=== PATIENT | male | born 1985 | race Caucasian/White ===

== ENCOUNTER 2016-06-05 22:15 | Emergency (ER) | payer SELFPAY ==
[2016-06-05] MEDS ORDERED: LORazepam 1 MG TAB PO ONE (22:49)
[2016-06-05] MEDS ORDERED: OLANZapine DISINTEGR 5 MG TAB PO ONE (22:49)
--- NOTE | 2016-06-05 22:52 | EDPHY ---
H & P Stated Complaint: SI depression detoxing for heroin and benzos - Personal History Current Tetanus/Diphtheria Vaccine: Unsure Current Tetanus Diphtheria and Acellular Pertussis (TDAP): Unsure Tetanus Vaccine Date: 2015 - Medical/Surgical History Hx Asthma: No Hx Chronic Respiratory Disease: No Hx Diabetes: No Hx Cardiac Disease: No Hx Renal Disease: No Hx Cirrhosis: No Hx Alcoholism: No Hx HIV/AIDS: No Hx Splenectomy or Spleen Trauma: No Other PMH: denies - Social History Smoking Status: Heavy smoker Time Seen by Provider: 06/05/16 22:28 HPI/ROS: Chief complaint, suicidal, detoxing HPI: 31-year-old male states that he is detoxing off of heroin and meth. Patient states that he he has been trying to "score enough heroin to kill myself " but has been unable to get his hands on any. He states that he last used heroin about 30 hours ago. Did use meth yesterday. Has a history of depression and has had suicide attempts in the past with overdoing. He has also cut his wrist in the past. He moved here from [place] in December. He has received mental health care in [place] in the past. Denies any other ingestions. No recent illness. No fevers or chills. No nausea or vomiting. No chest pain or shortness of breath. ROS: 10 point Review of Systems is negative except as noted in the HPI. Past medical history: Substance abuse, depression Medications: None Allergies: No known drug allergies Social history: Does smoke, does drink alcohol does use "any drug-seeking get his hands on" Physical exam: Gen: Awake, Alert, No Distress HEENT: Nose: no rhinorrhea Eyes: PERRLA, EOMI Mouth: Moist mucosa Neck: Supple, no JVD Chest: nontender, lungs clear to auscultation Heart: S1, S2 normal, no murmur Abd: Soft, non-tender, no guarding Back: no CVA tenderness, no midline tenderness Ext: no edema, non-tender Skin: no rash Neuro: CN II-XII intact, Sensation grossly intact, Strength 5/5 in bilateral upper and lower extremities (Edwin Negro) Constitutional: Initial Vital Signs Temperature (C) 36.8 C 06/05/16 22:19 Heart Rate 91 06/05/16 22:19 Respiratory Rate 18 06/05/16 22:19 Blood Pressure 118/76 06/05/16 22:19 O2 Sat (%) 99 06/05/16 22:19 O2 Delivery Mode Room Air Allergies/Adverse Reactions: No Known Allergies Allergy (Unverified 06/05/16 22:22) Home Medications: Medication Instructions Recorded NK [No Known Home Meds] 06/05/16 Medical Decision Making ED Course/Re-evaluation: 31-year-old male presenting suicidal with intent to kill himself by overdosing on heroin. He is positive for meth, marijuana and opioids. I have put him on a detainer. He will need a mental health evaluation after his meth has cleared. He is complaining of agitation and withdrawal. I will give him some Ativan and Zyprexa here. (Edwin Negro) Other Provider: Care assumed at 6:45 a.m. with plan for psychiatric evaluation after methamphetamine clearance. 921: Patient had psychiatric evaluation disposition and is the recommendation of the evaluate Torey and the psychiatrist leasing sales consultant Dr. Johnnie Humphries that he be discharged to detox. Not acutely suicidal at this time. (Orlando Raymundo ) - Data Points Laboratory Results: Laboratory Results 06/05/16 22:40 06/05/16 22:40 Medications Given: Discontinued Medications Lorazepam (Ativan) 2 mg PO EDNOW ONE Stop: 06/05/16 22:50 Last Admin: 06/05/16 23:00 Dose: 2 mg Olanzapine (Zyprexa Zydis) 5 mg PO EDNOW ONE Stop: 06/05/16 22:50 Last Admin: 06/05/16 23:00 Dose: 5 mg Olanzapine (Zyprexa Zydis) 5 mg PO EDNOW ONE Stop: 06/06/16 08:40 Last Admin: 06/06/16 08:44 Dose: 5 mg Departure - Departure Disposition: Home, Routine, Self-Care Clinical Impression: Methamphetamine abuse, Heroin abuse Condition: Good Instructions: Narcotic Abuse (ED), Methamphetamine Abuse (ED) Referrals: Chase Humphries MD [Medical Doctor] - As per Instructions
[2016-06-05 23:21] LABS: % IMMATURE GRANULYOCYTES 0.3 % (0.0-1.1); ABSOLUTE IMMATURE GRANULOCYTES 0.03 10^3/uL (0.00-0.10); ADD DIFF? NO; ADD MORPH? NO; ADD SCAN? NO; ATYPICAL LYMPHOCYTE FLAG 30 (0-99); FRAGMENT RBC FLAG 0 (0-99); HEMOGLOBIN 14.2 g/dL (13.7-17.5); LEFT SHIFT FLG 20 (0-99); LIPEMIA HEMOLYSIS FLAG 90 (0-99); MEAN CELL HEMOGLOBIN 30.5 pg (27.9-34.1); MEAN CELL HEMOGLOBIN CONCENTR. 34.6 g/dL (32.4-36.7); MEAN PLATELET VOLUME 10.3 fL (8.7-11.7); PLATELET CLUMPS FLAG 0 (0-99); PLATELET COUNT 308 10^3/uL (150-400); RED BLOOD CELL COUNT 4.66 10^6/uL (4.40-6.38); RED CELL DISTRIBUTION WIDTH 13.8 % (11.5-15.2)
[2016-06-05 23:28] LABS: ALANINE AMINOTRANSFERASE 27 IU/L (21-72); ALBUMIN 4.8 g/dL (3.5-5.0); ALKALINE PHOSPHATASE 84 IU/L (38-126); ANION GAP 15 mEq/L (8-16); ASPARTATE AMINOTRANSFERASE 31 IU/L (17-59); BILIRUBIN,TOTAL 0.6 mg/dL (0.1-1.4); CALCIUM 9.8 mg/dL (8.5-10.4); CARBON DIOXIDE 22 mEq/l (22-31); CHLORIDE 100 mEq/L (97-110); CREATININE 0.8 mg/dL (0.7-1.3); GLOMERULAR FILTRATION RATE > 60; GLUCOSE 90 mg/dL (70-100); POTASSIUM 4.3 mEq/L (3.5-5.2); SODIUM 137 mEq/L (134-144); TOTAL PROTEIN 8.3 g/dL (6.3-8.2)
[2016-06-06 00:34] LABS: ETHANOL URINE < 10 (NEGATIVE); ETHANOL URINE NEGATIVE (NEGATIVE)
[2016-06-06] MEDS ORDERED: OLANZapine DISINTEGR 5 MG TAB PO ONE (08:39)
[2016-06-06] MEDS ORDERED: OLANZapine DISINTEGR 5 MG TAB ONE (08:41)
[2016-06-06 11:58] VITALS: TEMP 97.5
[2016-06-06 12:20] VITALS: BP 119/82; PULSE 72; RESP 16; O2SAT 94
== END 2016-06-06 12:17 | disposition home or self-care (01) ==
DX: F15.10 Other stimulant abuse, uncomplicated (principal); F11.10 Opioid abuse, uncomplicated; F17.200 Nicotine dependence, unspecified, uncomplicated
CPT/HCPCS: 80305; G0480

== ENCOUNTER 2017-01-11 16:24 | Emergency (ER) | payer SELFPAY ==
[~2017-01-11 16:24] MED LIST: CEPHALEXIN 500 MG CAP PO SCH; SULFAMETHOX/TMP 800/160 MG 1 TAB PO SCH
[2017-01-11 16:29] VITALS: RESP 16
--- NOTE | 2017-01-11 19:01 | EDPHY ---
H & P Smoking Status: Heavy smoker Time Seen by Provider: 01/11/17 17:57 HPI/ROS: CHIEF COMPLAINT: Abscess left arm HISTORY OF PRESENT ILLNESS: 31-year-old male presents to the emergency department with an abscess to his left arm. Patient has a history of IV heroin abuse. He states over last 2 days he has had pain and swelling in his left arm is concerned about an abscess. He has had this in the past in a similar location. He is right-hand dominant. He denies fevers or chills. He denies chest pain or difficulty breathing. Denies abdominal pain or vomiting. He has pain especially with range of motion of his left elbow. States that he is unable to fully extend his left elbow because of swelling and pain. REVIEW OF SYSTEMS: Constitutional: No fever, no chills. Eyes: No double or blurry vision. ENT: No sore throat. Respiratory: No cough, no shortness of breath. Cardiac: No chest pain. Gastrointestinal: No abdominal pain, vomiting or diarrhea. Genitourinary: No dysuria. Musculoskeletal: No neck or back pain. Skin: No rashes. Neurological: No headache. (Antonella Read) Past Medical/Surgical History: IV drug abuse (Antonella Read) Social History: Single (Antonella Read) Physical Exam: General Appearance: Alert, no distress. Afebrile, 97% on room air Eyes: Pupils equal and round. Extraocular motions are all intact. ENT: Mouth: Mucous membranes moist. Respiratory: No wheezing, rhonchi, or rales, lungs are clear to auscultation. Cardiovascular: Regular rate and rhythm. Gastrointestinal: Abdomen is soft and nontender, no masses, no rebound or guarding, bowel sounds normal. Neurological: Alert and oriented x 3, cranial nerves II through XII grossly intact Skin: Swelling noted to the left upper extremity from the left mid humerus down to the left wrist. He is unable to fully extend his left elbow secondary to swelling. Large what appears to be subcutaneous abscess to the left medial mid humerus. Surrounding redness. Tender to palpate. No lymphangitis. No palpable left axillary lymphadenopathy. Musculoskeletal: Nontender to palpate along the cervical, thoracic or lumbar spine. Neck is supple. Extremities: Decreased extension of the left elbow secondary to swelling and pain. Swelling noted from left forearm to left mid humerus. Psychiatric: Patient is oriented X 3, there is no agitation. (Antonella Read) Constitutional: Initial Vital Signs Temperature (C) 36.8 C 01/11/17 16:26 Heart Rate 126 H 01/11/17 16:26 Respiratory Rate 16 01/11/17 16:26 Blood Pressure 126/86 H 01/11/17 16:26 O2 Sat (%) 97 01/11/17 16:26 O2 Delivery Mode Room Air Allergies/Adverse Reactions: No Known Allergies Allergy (Unverified 06/05/16 22:22) Home Medications: Medication Instructions Recorded Cephalexin [Keflex] 500 mg PO QID #28 cap 01/11/17 Sulfamethox/Tmp 800/160 mg 1 tab PO BID #14 tab 01/11/17 [Bactrim DS] Medical Decision Making Procedures: Procedure: Abscess drainage. The patient's abscess was located on the left humerus. Risks, benefits, alternatives discussed with the patient and consent obtained. The abscess was incised with a #11 blade and large amount of purulent drainage was expressed. The wound was irrigated and packed. The patient tolerated the procedure well. The procedure was performed by myself. (Antonella Read) ED Course/Re-evaluation: 31-year-old male with a history of IV drug abuse presents emergency department with large abscess to his left mid arm. The abscess was incised and drained and packed. Wound culture obtained. The patient has significant cellulitis and unable to fully extend his left elbow. I recommended IV antibiotics, admission to the hospital with orthopedic consultation. The patient refused. He signed a form stating that he was against medical advice. He understands that he is at risk for loss of limb, sepsis, . The patient will be started on oral Keflex and Bactrim. He will return to the emergency department in 2 days for packing removal and for wound recheck. He was encouraged to have close follow-up with primary care provider. He was also instructed to return sooner if he developed fever, lymphangitis, worsening pain or any other concerns. The case was discussed with Dr. Omaira Barraza, secondary supervising physician, who did not directly evaluate the patient but agrees with treatment and plan. She is aware that the patient is leaving against medical advice. (Antonella Read) The patient was evaluated and managed by the physician assistant sales director. I have reviewed this chart and I agree with the findings and plan of care as documented , as indicated by my signature. I am the secondary supervising physician. ( Omaira Barraza) Differential Diagnosis: Including but not limited to abscess, cellulitis, sepsis, septic arthritis, DVT (Antonella Read) - Data Points Microbiology Results: MICROBIOLOGY 01/11/17 Unknown Arm - Swab Gram Stain - Final 01/11/17 Unknown Arm - Swab Wound Culture - Final Staphylococcus Aureus Departure - Departure Disposition: Home, Routine, Self-Care Clinical Impression: Abscess of left arm Condition: Good Instructions: Cellulitis (ED), Abscess (ED) Additional Instructions: You declined admission to the hospital. You stated that you understand that you may lose your arm if you are not admitted to the hospital and receive IV antibiotics. You are also at risk for worsening infection or . Keflex and Bactrim as directed for one week. Return to the emergency department in 2 days for wound recheck and to have packing removed. Referrals: [facility],. [Clinic] - 1-2 days without fail Prescriptions: Cephalexin [Keflex] 500 mg PO QID #28 cap Sulfamethox/Tmp 800/160 mg [Bactrim DS] 1 tab PO BID #14 tab
[2017-01-11 23:15] VITALS: BP 121/80; PULSE 90; TEMP 98.1; O2SAT 96
== END 2017-01-11 19:25 | disposition home or self-care (01) ==
LOC: EEVIPCON 16:24
PROC: 0H9CX0Z Drainage of Left Upper Arm Skin with Drainage Device, External Approach (ICD-10-PCS; principal; 2017-01-11)
DX: L02.414 Cutaneous abscess of left upper limb (principal)

== ENCOUNTER 2018-02-18 18:16 | Emergency (ER) | payer MEDICAID ==
--- NOTE | 2018-02-18 18:26 | EDPHY ---
H & P Stated Complaint: increasing heartburn/cp over last month Time Seen by Provider: 02/18/18 18:18 HPI/ROS: CHIEF COMPLAINT: Worsening heartburn HISTORY OF PRESENT ILLNESS: The patient presents to the ED with 1 month history of worsening heartburn. He describes a fracture sensation in the back of his throat. He has tried [id number] antacids and he believes Prilosec with minimal improvement of his symptoms. The patient denies any exertional chest pain but is developing an epigastric discomfort. The patient is currently receiving Vivitrol for opioid dependence. He is been on this medication for at least 8 months. The patient does report having history of an arrhythmia in the past. He is not under the care of Cardiology currently. REVIEW OF SYSTEMS: A comprehensive 10 point review of systems is otherwise negative aside from elements mentioned in the history of present illness. Source: Patient Exam Limitations: No limitations - Personal History Current Tetanus Diphtheria and Acellular Pertussis (TDAP): Yes Tetanus Vaccine Date: 2015 - Medical/Surgical History Hx Asthma: No Hx Chronic Respiratory Disease: No Hx Diabetes: No Hx Cardiac Disease: No Hx Renal Disease: No Hx Cirrhosis: No Hx Alcoholism: No Hx HIV/AIDS: No Hx Splenectomy or Spleen Trauma: No Other PMH: Previous abscess to left upper arm. - Social History Smoking Status: Current some day smoker - Physical Exam Exam: General Appearance: Alert, no distress Eyes: Pupils equal and round no pallor or injection ENT, Mouth: Mucous membranes moist Respiratory: There are no retractions, lungs are clear to auscultation Cardiovascular: Regular rate and rhythm Gastrointestinal: Epigastric tenderness to palpation, no peritoneal signs Neurological: 5/5 strength all 4 extremities Skin: Warm and dry, no rashes Musculoskeletal: Neck is supple nontender Extremities: symmetrical, full range of motion Constitutional: Initial Vital Signs Temperature (C) 36.7 C 02/18/18 18:19 Heart Rate 106 H 02/18/18 18:19 Respiratory Rate 18 02/18/18 18:19 Blood Pressure 141/104 H 02/18/18 18:19 O2 Sat (%) 96 02/18/18 18:19 O2 Delivery Mode Room Air Allergies/Adverse Reactions: No Known Allergies Allergy (Verified 02/18/18 18:18) Home Medications: Medication Instructions Recorded Pantoprazole Sodium [Protonix 40mg 40 mg PO BID #60 tab 02/18/18 (*)] Vivitrol 02/18/18 Medical Decision Making - Diagnostics EKG Interpretation: EKG: Complete interpretation has been separately recorded in the [employer] archive. 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 He is instantly noted to have evidence of a delta wave on his EKG. He has no history of syncope but does report occasional tachycardia. The patient's EKG otherwise demonstrates no evidence of ischemia. The patient' s troponin is normal as are his liver function test and lipase. The patient was given a GI cocktail in the emergency department. I re-evaluated the patient at 7:30 p.m. He is feeling much better. In discussing the patient's delta wave is sounds as if he is actually seen tax examining technician before in the past who recommended an EP study. The patient will be given the contact number of our on-call payroll consultant. The patient is discharged home with a prescription of Protonix 40 mg twice daily. The patient is referred to our on-call sourcing associate. Differential Diagnosis: Differential diagnosis considered includes gastroesophageal reflux disease, pancreatitis, hepatitis, myocarditis, acute coronary syndrome - Data Points Laboratory Results: Laboratory Results 02/18/18 18:50 02/18/18 18:50 02/18/18 02/18/18 02/18/18 18:53 18:50 18:50 WBC REJ RBC TNP Hgb TNP Hct TNP MCV TNP MCH TNP MCHC TNP RDW TNP Plt Count TNP MPV TNP Neut % (Auto) TNP Lymph % (Auto) TNP [place] % (Auto) TNP Eos % (Auto) TNP Baso % (Auto) TNP Nucleat RBC Rel Count TNP Absolute Neuts (auto) TNP Absolute Lymphs (auto) TNP Absolute Monos (auto) TNP Absolute Eos (auto) TNP Absolute Basos (auto) TNP Absolute Nucleated RBC TNP Immature Gran % TNP Immature Gran # TNP Sodium 136 mEq/L mEq/L (135-145) Potassium 4.2 mEq/L mEq/L (3.3-5.0) Chloride 102 mEq/L mEq/L (97-110) Carbon Dioxide 23 mEq/l mEq/l (22-31) Anion Gap 11 mEq/L mEq/L (6-14) BUN 16 mg/dL mg/dL (7-23) Creatinine 1.1 mg/dL mg/dL (0.7-1.3) Estimated GFR > 60 Glucose 107 mg/dL H mg/dL (70-100) Calcium 10.1 mg/dL mg/dL (8.5-10.4) Total Bilirubin 0.5 mg/dL mg/dL (0.1-1.4) Conjugated Bilirubin 0.3 mg/dL mg/dL (0.0-0.5) Unconjugated Bilirubin 0.2 mg/dL mg/dL (0.0-1.1) AST 29 IU/L IU/L (17-59) ALT 28 IU/L IU/L (21-72) Alkaline Phosphatase 66 IU/L IU/L (38-126) POC Troponin I 0.00 ng/mL ng/mL (0.00-0.08) Troponin I < 0.012 ng/mL ng/mL (0.000-0.034) Total Protein 7.6 g/dL g/dL (6.3-8.2) Albumin 4.6 g/dL g/dL (3.5-5.0) Lipase 58 IU/L IU/L (23-300) Medications Given: Discontinued Medications Al Hydroxide/Mg Hydroxide (Maalox Susp) 30 ml PO ONCE ONE Stop: 02/18/18 18:34 Last Admin: 02/18/18 19:19 Dose: 30 ml Hyoscyamine Sulfate (Levsin, Hyomax-Sl) 0.25 mg PO ONCE ONE Stop: 02/18/18 18:34 Last Admin: 02/18/18 19:19 Dose: 0.25 mg Lidocaine (Lidocaine 2% Viscous) 15 ml PO ONCE ONE Stop: 02/18/18 18:34 Last Admin: 02/18/18 19:19 Dose: 15 ml Ondansetron HCl (Zofran) 4 mg IVP EDNOW ONE Stop: 02/18/18 18:58 Last Admin: 02/18/18 19:00 Dose: 4 mg Point of Care Test Results: Chemistry 02/18/18 18:53 POC Troponin I 0.00 ng/mL ng/mL (0.00-0.08) Departure - Departure Disposition: Home, Routine, Self-Care Clinical Impression: Gastroesophageal reflux, Pre-excitation syndrome Condition: Good Instructions: Gastroesophageal Reflux Disease (ED) Additional Instructions: 1. Please begin Protonix as directed for your acid reflux. You can continue to Maalox as well. 2. Follow up with a sourcing associate you have been referred to for any unimproved symptoms. 3. 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 I would recommend that you follow up with the payroll consultant, Dr. Melinda Moreira, you have been referred to. Referrals: Jose Dominguez MD [Medical Doctor] - As per Instructions Melinda Moreira MD [Medical Doctor] - As per Instructions Prescriptions: Pantoprazole Sodium [Protonix 40mg (*)] 40 mg PO BID #60 tab
[2018-02-18] MEDS ORDERED: LIDOCAINE 2% VISCOUS 15 ML UDCUP PO ONE (18:33)
[2018-02-18] MEDS ORDERED: HYOSCYAMINE SULFATE 0.125 MG TAB PO ONE (18:33)
[2018-02-18] MEDS ORDERED: MAG HYDROX/AL HYDROX/SIMETH 30 ML UDCUP PO ONE (18:33)
[2018-02-18] MEDS ORDERED: ONDANSETRON 4 MG/2 ML VIAL ONE (18:53)
[2018-02-18] MEDS ORDERED: ONDANSETRON 4 MG/2 ML VIAL IVP ONE (18:57)
--- NOTE | 2018-02-18 19:09 | CPEKG ---
Test Reason : OPEN Blood Pressure : / mmHG Vent. Rate : 099 BPM Atrial Rate : 097 BPM P-R Int : 099 ms QRS Dur : 105 ms QT Int : 340 ms P-R-T Axes : 034 078 -10 degrees QTc Int : 437 ms Sinus rhythm Vent pre-excitat'n(WPW), left acces'y pathway Confirmed by Jalil Lopez ([id number]) on 02/18/2018 7:09:09 PM Referred By: Confirmed By:Jalil Lopez
[2018-02-18 19:57] VITALS: BP 121/88
== END 2018-02-18 19:58 | disposition home or self-care (01) ==
DX: R12 Heartburn (principal); K21.9 Gastro-esophageal reflux disease without esophagitis
CPT/HCPCS: 84484-PO; 96374; J2405

== ENCOUNTER 2018-03-23 11:55 | Emergency (ER) | payer MEDICAID ==
[2018-03-23 12:00] VITALS: BP 132/89
--- NOTE | 2018-03-23 12:59 | EDPHY ---
HPI/HX/ROS/PE/MDM Narrative: CHIEF COMPLAINT: Medication refill HPI: The patient is a 33 y/o male with a history of GERD who is requesting a refill of his Protonix. He was recently diagnosed with GERD and provided a prescription for Protonix in addition to a referral to a associate partner. When he called to schedule that appointment, he was told he needed to make an appointment with a PCP first to get a referral into the GI office due to having Medicaid insurance. He made that PCP appointment, but the soonest he could get in is this upcoming Saturday, 5 days from now. He ran out of medication two days ago and reflux symptoms returned immediately. He has been attempting to treat with OTC remedies without improvement. He went to urgent care today to see if they could refill his prescription and they refused to see him so he came to the ED. PMH: GERD SOCIAL HISTORY: Lives in [place]. Single. Employed. PHYSICAL EXAM: General:Patient is alert, in no acute distress. Neuro: Oriented x3. Normal motor function. Normal sensory function. ED Course: Script for Protonix provided. General Time Seen by Provider: 03/23/18 12:50 Initial Vital Signs: Initial Vital Signs Temperature (C) 36.7 C 03/23/18 11:56 Heart Rate 94 03/23/18 11:56 Respiratory Rate 16 03/23/18 11:56 Blood Pressure 132/89 H 03/23/18 11:56 O2 Sat (%) 97 03/23/18 11:56 O2 Delivery Mode Room Air Allergies/Adverse Reactions: No Known Allergies Allergy (Verified 03/23/18 11:56) Home Medications: Medication Instructions Recorded Pantoprazole Sodium [Protonix 40mg 40 mg PO BID #60 tab 02/18/18 (*)] Vivitrol 02/18/18 Pantoprazole Sodium [Protonix 40mg 40 mg PO BID #30 tab 03/23/18 (*)] Departure - Departure Disposition: Home, Routine, Self-Care Clinical Impression: Medication refill Condition: Good Instructions: Pantoprazole (By mouth), Medicine Refill (ED) Additional Instructions: Take Protonix as prescribed. Follow up with your primary care provider as planned on Saturday. If you run out of medications again, you can try using Pepcid instead, which is a similar medication and available [id number]. Referrals: [facility],. [Clinic] - As per Instructions Prescriptions: Pantoprazole Sodium [Protonix 40mg (*)] 40 mg PO BID #30 tab Report Scribed for: Chirag Huerta Report Scribed by: Eleonora Saldivar Date of Report: 03/23/18 Time of Report: 13:01 Physician Review and Approval Statement: Portions of this note were transcribed by an ED scribe. I personally performed the history, physical exam, and medical decision making; and confirm the accuracy of the information in the transcribed note.
== END 2018-03-23 13:09 | disposition home or self-care (01) ==
DX: Z76.0 Encounter for issue of repeat prescription (principal); K21.9 Gastro-esophageal reflux disease without esophagitis